=== PATIENT | female | born 1945 | race Two or more races ===

== ENCOUNTER 2017-08-16 12:44 | Emergency (ER) | payer OTHER ==
[~2017-08-16 12:44] MED LIST: LEVOTHROID0.112 MG PO; LISINOPRIL2.5 MG; LOVASTATIN20 MG; METFORMIN ER500 M1 PO; PRI20 PO; SYN1 PO
[2017-08-16 15:02] LABS: CALCIUM 9.6 mg/dL (8.5-10.1); CARBON DIOXIDE 30.8 mmol/L (21-32); CHLORIDE SERUM 100 mmol/L (98-107); CREATININE SERUM 0.8 mg/dL (0.6-1.0); GLUCOSE SERUM 113 mg/dL (74-106); POTASSIUM SERUM 4.4 mmol/L (3.5-5.1); SODIUM SERUM 138 mmol/L (136-145)
[2017-08-16 15:08] LABS: ALBUMIN 3.6 g/dL (3.4-5.0); ALKALINE PHOSPHATASE 85 U/L (46-116); ALT/SGPT 23 U/L (14-59); AST/SGOT 18 U/L (15-37); BILIRUBIN TOTAL 0.1 mg/dL (0.20-1.00); TOTAL PROTEIN, SERUM 7.9 g/dL (6.4-8.2)
[2017-08-16 15:24] LABS: BASOPHIL % 0.5 % (0-2); PLATELET COUNT 250 x10^3mcL (130-400); RED CELL DISTRIBUTION WIDTH 14.1 % (11.5-14.5)
[2017-08-16 17:28] VITALS: BP 143/86
== END 2017-08-16 17:28 | disposition home or self-care (01) ==
LOC: ED 12:44
PROVIDERS: Emergency Medicine
DX: F41.1 Generalized anxiety disorder (principal); I10 Essential (primary) hypertension; E78.00 Pure hypercholesterolemia, unspecified; E11.9 Type 2 diabetes mellitus without complications; E89.0 Postprocedural hypothyroidism
CPT/HCPCS: 36415; 83880; Q0092

== ENCOUNTER 2018-03-11 12:25 | Inpatient (IN) | payer OTHER ==
[~2018-03-11] VITALS: Ht 157.5 cm; Wt 55.8 kg
[2018-03-11 12:33] VITALS: Ht 157.5 cm; Wt 55.8 kg
[2018-03-11 15:06] LABS: BASOPHIL % 0.3 % (0-2); PLATELET COUNT 241 x10^3mcL (130-400); RED CELL DISTRIBUTION WIDTH 14.4 % (11.5-14.5)
[2018-03-11 15:10] LABS: microscopic required? YES; urine erythrocyte 1+ (NEGATIVE)
[2018-03-11 15:29] LABS: CALCIUM 8.8 mg/dL (8.5-10.1); CARBON DIOXIDE 27.9 mmol/L (21-32); CHLORIDE SERUM 102 mmol/L (98-107); CREATININE SERUM 0.7 mg/dL (0.6-1.0); GLUCOSE SERUM 136 mg/dL (74-106); POTASSIUM SERUM 4.1 mmol/L (3.5-5.1); SODIUM SERUM 138 mmol/L (136-145)
[2018-03-11 15:33] LABS: ALKALINE PHOSPHATASE 64 U/L (46-116); ALT/SGPT 28 U/L (14-59); AMYLASE 26 U/L (25-115); AST/SGOT 21 U/L (15-37); BILIRUBIN TOTAL 0.2 mg/dL (0.20-1.00); LIPASE 104 IU/L (73-393); TOTAL PROTEIN, SERUM 6.7 g/dL (6.4-8.2)
[2018-03-11 15:34] LABS: ALBUMIN 3.2 g/dL (3.4-5.0)
[2018-03-11] MEDS ORDERED: ZESTRIL5 MG PO (16:01)
[2018-03-11] MEDS ORDERED: CARVEDILOL6.25 M1 PO (16:01)
[2018-03-11] MEDS ORDERED: LIPI20 PO (16:01)
[2018-03-11] MEDS ORDERED: GOOD NEIGHBOR P20 M2 PO (16:02)
[2018-03-11 16:57] LABS: MAGNESIUM 1.3 mg/dL (1.8-2.4); PHOSPHOROUS 3.4 mg/dL (2.5-4.9)
[2018-03-11 17:04] LABS: T3 TOTAL 0.69 ng/mL
[2018-03-11 17:10] LABS: FREE T4 1.36 ng/dL (0.76-1.46); FREE THYROXINE INDEX 3.7 ug/dL (1.4-4.5); T4(THYROXINE) 9.9 ug/dL (4.7-13.3)
[2018-03-11 17:40] VITALS: BP 167/73
[2018-03-11 20:58] VITALS: BP 137/69
[2018-03-12 05:22] VITALS: BP 128/63
[2018-03-12 05:41] LABS: BASOPHIL % 0.5 % (0-2); PLATELET COUNT 210 x10^3mcL (130-400); RED CELL DISTRIBUTION WIDTH 14.2 % (11.5-14.5)
[2018-03-12 05:57] LABS: CALCIUM 8.5 mg/dL (8.5-10.1); CARBON DIOXIDE 26.8 mmol/L (21-32); CHLORIDE SERUM 107 mmol/L (98-107); CREATININE SERUM 0.6 mg/dL (0.6-1.0); GLUCOSE SERUM 130 mg/dL (74-106); PHOSPHOROUS 3.3 mg/dL (2.5-4.9); POTASSIUM SERUM 4.1 mmol/L (3.5-5.1); SODIUM SERUM 137 mmol/L (136-145); TRIGLYCERIDES 88 mg/dL (<150)
[2018-03-12 06:00] LABS: CHOLESTEROL 107 mg/dL (<200); CHOLESTEROL/HDL RATIO 3.3; HDL CHOLESTEROL 32 mg/dL (40-60)
[2018-03-12 13:01] VITALS: BP 121/65
[2018-03-12 17:47] VITALS: BP 115/67
[2018-03-12 20:18] VITALS: BP 107/57
[2018-03-13 06:22] VITALS: BP 134/74
[2018-03-13 06:23] LABS: CALCIUM 8.8 mg/dL (8.5-10.1); CARBON DIOXIDE 27.6 mmol/L (21-32); CHLORIDE SERUM 107 mmol/L (98-107); CREATININE SERUM 0.6 mg/dL (0.6-1.0); GLUCOSE SERUM 125 mg/dL (74-106); POTASSIUM SERUM 4.6 mmol/L (3.5-5.1); SODIUM SERUM 140 mmol/L (136-145)
[2018-03-13 06:51] LABS: BASOPHIL % 0.4 % (0-2); PLATELET COUNT 216 x10^3mcL (130-400); RED CELL DISTRIBUTION WIDTH 14.3 % (11.5-14.5)
[2018-03-13 09:20] VITALS: BP 140/76
[2018-03-13] MEDS ORDERED: LEV500 PO (09:21)
[2018-03-13] MEDS ORDERED: COL100 PO (09:22)
[2018-03-13] MEDS ORDERED: LAC PO (09:22)
[2018-03-13] MEDS ORDERED: FLA500 PO (09:23)
[2018-03-13 10:01] VITALS: BP 140/76
== END 2018-03-13 12:50 | disposition home or self-care (01) | DRG 391 ==
LOC: ED 12:25 → MU 16:33 → DU 16:33 → MU 03-12 08:00
PROVIDERS: Emergency Medicine; Family Medicine
DX: K57.92 Diverticulitis of intestine, part unspecified, without perforation or abscess without bleeding (principal); N17.0 Acute kidney failure with tubular necrosis; N39.0 Urinary tract infection, site not specified; E44.0 Moderate protein-calorie malnutrition; E87.2 Acidosis; E11.65 Type 2 diabetes mellitus with hyperglycemia; I10 Essential (primary) hypertension; E78.00 Pure hypercholesterolemia, unspecified; K21.9 Gastro-esophageal reflux disease without esophagitis; E83.42 Hypomagnesemia; E03.9 Hypothyroidism, unspecified; Z85.850 Personal history of malignant neoplasm of thyroid; Z90.49 Acquired absence of other specified parts of digestive tract; Z83.3 Family history of diabetes mellitus; Z82.49 Family history of ischemic heart disease and other diseases of the circulatory system; Z68.24 Body mass index [BMI] 24.0-24.9, adult; R31.9 Hematuria, unspecified; K59.00 Constipation, unspecified; I08.1 Rheumatic disorders of both mitral and tricuspid valves
CPT/HCPCS: 83880; 84439; J1885; J1956; J2405; J3475; J3490; J7030; Q0092

== ENCOUNTER 2019-11-10 01:34 | Emergency (ER) | payer OTHER ==
[~2019-11-10] VITALS: Ht 157.5 cm; Wt 60.3 kg
[~2019-11-10 01:34] MED LIST changes: +CARVEDILOL6.25 M1 PO; +COL100 PO; +FLA500 PO; +GOOD NEIGHBOR P20 M2 PO; +LAC PO; +LEV500 PO; +LIPI20 PO; +ZESTRIL5 MG PO
[2019-11-10 01:40] VITALS: Ht 157.5 cm; Wt 60.3 kg
[2019-11-10 02:42] LABS: BASOPHIL % 0.4 % (0-2); PLATELET COUNT 240 x10^3mcL (130-400); RED CELL DISTRIBUTION WIDTH 15.5 % (11.5-14.5)
[2019-11-10 03:09] LABS: CARBON DIOXIDE 28.4 mmol/L (21-32); CHLORIDE SERUM 100 mmol/L (98-107); CREATININE SERUM 0.6 mg/dL (0.6-1.0); GLUCOSE SERUM 114 mg/dL (74-106); POTASSIUM SERUM 4.1 mmol/L (3.5-5.1); SODIUM SERUM 137 mmol/L (136-145)
[2019-11-10 03:10] LABS: ALBUMIN 3.3 g/dL (3.4-5.0); AST/SGOT 18 U/L (15-37); BILIRUBIN TOTAL 0.24 mg/dL (0.20-1.00); CALCIUM 9.1 mg/dL (8.5-10.1); TOTAL PROTEIN, SERUM 6.8 g/dL (6.4-8.2)
[2019-11-10 03:11] LABS: ALKALINE PHOSPHATASE 79 U/L (46-116); ALT/SGPT 21 U/L (14-59); MAGNESIUM 1.5 mg/dL (1.8-2.4)
[2019-11-10 03:53] LABS: T4(THYROXINE) 8.3 ug/dL (4.7-13.3)
[2019-11-10 04:10] LABS: UA SPECIFIC GRAVITY <=1.005 (1.005-1.035); microscopic required? YES; urine erythrocyte 1+ (NEGATIVE)
[2019-11-10 05:46] VITALS: BP 104/80
== END 2019-11-10 05:46 | disposition home or self-care (01) ==
LOC: ED 01:34
PROVIDERS: Emergency Medicine
DX: E86.0 Dehydration (principal); E83.42 Hypomagnesemia; B34.9 Viral infection, unspecified; E78.00 Pure hypercholesterolemia, unspecified; E11.9 Type 2 diabetes mellitus without complications; E03.9 Hypothyroidism, unspecified; Z85.850 Personal history of malignant neoplasm of thyroid
CPT/HCPCS: 83880; 87804; J2405; J3475; J7040; Q0092